=== PATIENT | male | born 1995 | race African-American/Black ===

== ENCOUNTER 2017-10-23 15:57 | Emergency (ER) | payer SELFPAY ==
[~2017-10-23] VITALS: Ht 180.3 cm; Wt 68.0 kg
[2017-10-23 17:29] LABS: HEMATOCRIT. 42.9 % (42.0-52.0); HEMOGLOBIN. 14.7 g/dL (14.0-18.0); MEAN CORPUSCULAR HEMOGLOBIN 28.5 pg (28.0-32.0); MEAN CORPUSCULAR VOLUME 83.2 fL (80.0-94.0); MEAN PLATELET VOLUME 8.3 fl (7.4-10.4); PLATELET 243 x1000/uL (130-400); RED BLOOD CELL COUNT 5.15 mill/uL (4.7-6.1); RED CELL DISTRIBUTION WIDTH 13.6 % (11.6-14.6)
[2017-10-23] MEDS ORDERED: ACETAMINOPHEN 325MG TABLET PO ONE (17:30)
[2017-10-23 17:33] LABS: CARBON DIOXIDE 28 mEq/L (21-32); CHLORIDE 98 mEq/L (98-107)
[2017-10-23 18:13] LABS: PLATELET ESTIMATE NORMAL
[2017-10-23 18:38] VITALS: BP 136/76
[2017-10-23 18:44] LABS: CLARITY URINE CLEAR (CLEAR); COLOR URINE YELLOW (YELLOW); KETONES URINE 3+ (NEGATIVE); LEUKOCYTE ESTERASE URINE NEGATIVE (NEGATIVE); NITRITE URINE NEGATIVE (NEGATIVE); OCCULT BLOOD URINE NEGATIVE (NEGATIVE); PH URINE >=9.0 (4.5-8.0); PROTEIN URINE 1+ (NEGATIVE); SPECIFIC GRAVITY URINE 1.029 (1.005-1.030)
== END 2017-10-23 19:29 | disposition home or self-care (01) ==
LOC: ER 15:57
DX: N50.811 Right testicular pain (principal); N50.812 Left testicular pain
CPT/HCPCS: 36415; 76870; 80048; 81001; 85025; 93976; 99285; Z7610

== ENCOUNTER 2019-08-19 23:24 | Emergency (ER) | payer SELFPAY ==
[~2019-08-19] VITALS: Ht 167.6 cm; Wt 80.0 kg
[2019-08-20] MEDS ORDERED: IBUPROFEN 600MG TABLET PO ONE (02:00)
[2019-08-20 02:03] VITALS: BP 139/79
== END 2019-08-20 02:05 | disposition home or self-care (01) ==
LOC: ER 23:24
DX: M79.18 Myalgia, other site (principal); F41.9 Anxiety disorder, unspecified; F20.9 Schizophrenia, unspecified
CPT/HCPCS: 99283

== ENCOUNTER 2019-08-24 04:25 | Emergency (ER) | payer SELFPAY ==
[~2019-08-24] VITALS: Ht 180.3 cm; Wt 75.0 kg
[2019-08-24 05:18] LABS: BASOPHILS % 0.6 % (0.0-2.0); EOSINOPHILS % 1.6 % (0.0-5.0); HEMATOCRIT. 40.7 % (42.0-52.0); HEMOGLOBIN. 13.8 g/dL (14.0-18.0); MEAN CORPUSCULAR HEMOGLOBIN 29.3 pg (28.0-32.0); MEAN CORPUSCULAR VOLUME 86.2 fL (80.0-94.0); MEAN PLATELET VOLUME 8.5 fl (7.4-10.4); MONOCYTES % 9.7 % (2.0-8.0); NEUTROPHILS % 62.1 % (40.0-76.0); PLATELET 274 x1000/uL (130-400); RED BLOOD CELL COUNT 4.72 mill/uL (4.7-6.1); RED CELL DISTRIBUTION WIDTH 13.8 % (11.6-14.6)
[2019-08-24 05:31] LABS: CHLORIDE 106 mEq/L (98-107)
[2019-08-24] MEDS ORDERED: ASPIRIN 81MG TABLET PO ONE (06:30)
[2019-08-24] MEDS ORDERED: ACETAMINOPHEN 500MG TABLET PO ONE (06:30)
[2019-08-24 06:51] VITALS: BP 120/79
[2019-08-24] MEDS ORDERED: MAGNESIUM/ALUMINUM HYDROXIDE/SIMETHICONE 30ML UDC PO STA (07:08)
[2019-08-24] MEDS ORDERED: FAMOTIDINE 20MG/2ML VIAL IV STA (07:08)
[2019-08-24] MEDS ORDERED: KETOROLAC 60MG/2ML VIAL IM ONE (07:15)
== END 2019-08-24 07:35 | disposition home or self-care (01) ==
LOC: ER 04:25
DX: R07.89 Other chest pain (principal); J45.909 Unspecified asthma, uncomplicated; F12.10 Cannabis abuse, uncomplicated; F17.200 Nicotine dependence, unspecified, uncomplicated
CPT/HCPCS: 36415; 71045; 80053; 84484; 85025; 93005; 96374; 99284; J3490; Z7610

== ENCOUNTER 2021-10-27 08:10 | Emergency (ER) | payer MEDICAID ==
[~2021-10-27] VITALS: Ht 180.3 cm; Wt 73.0 kg
[~2021-10-27 08:10] MED LIST: AMOX-424 MT; BO1 TP; IBUP-2029 MT
[2021-10-27] MEDS ORDERED: IBUP-2028 MT (08:53)
[2021-10-27] MEDS ORDERED: AMOX-424 MT (08:53)
[2021-10-27] MEDS ORDERED: AMOXICILLIN/POTASSIUM CLAVULANATE 875/125MG TAB PO ONE (09:00)
[2021-10-27 09:13] VITALS: BP 117/84
== END 2021-10-27 09:14 | disposition home or self-care (01) ==
LOC: ER 08:10
DX: Z48.02 Encounter for removal of sutures (principal); L03.113 Cellulitis of right upper limb
CPT/HCPCS: 99283; Z7610

== ENCOUNTER 2023-02-25 10:56 | Emergency (ER) | payer MEDICAID, OTHER ==
[~2023-02-25] VITALS: Ht 182.9 cm; Wt 73.0 kg
[~2023-02-25 10:56] MED LIST changes: +IBUP-2028 MT
[2023-02-25 10:58] VITALS: BP 117/85
[2023-02-25] MEDS ORDERED: IBUP-2028 MT (12:40)
== END 2023-02-25 13:14 | disposition home or self-care (01) ==
LOC: ER 10:56
DX: M79.671 Pain in right foot (principal); V49.9XXA Car occupant (driver) (passenger) injured in unspecified traffic accident, initial encounter; Y93.9 Activity, unspecified; Y92.89 Other specified places as the place of occurrence of the external cause; Y99.8 Other external cause status
CPT/HCPCS: 73630; 99283

== ENCOUNTER 2023-03-02 07:29 | Emergency (ER) | payer OTHER ==
[~2023-03-02] VITALS: Ht 172.7 cm; Wt 73.0 kg
[2023-03-02 07:38] VITALS: BP 128/76
== END 2023-03-02 09:55 | disposition home or self-care (01) ==
LOC: ER 08:05
DX: T75.4XXA Electrocution, initial encounter (principal); X58.XXXA Exposure to other specified factors, initial encounter; F12.10 Cannabis abuse, uncomplicated; Z79.899 Other long term (current) drug therapy
CPT/HCPCS: 93005; 99283

== ENCOUNTER 2023-03-13 07:46 | Emergency (ER) | payer OTHER ==
[~2023-03-13] VITALS: Ht 180.3 cm; Wt 75.0 kg
[2023-03-13] MEDS ORDERED: METO-293 PO (08:12)
[2023-03-13] MEDS ORDERED: IBUP-2028 PO (08:12)
[2023-03-13] MEDS ORDERED: IBUPROFEN 400MG TABLET PO ONE (08:15)
[2023-03-13] MEDS ORDERED: METOCLOPRAMIDE HCL 10MG TABLET PO ONE (08:15)
[2023-03-13 09:16] VITALS: BP 128/77
== END 2023-03-13 09:09 | disposition home or self-care (01) ==
LOC: ER 07:46
DX: R51.9 Headache, unspecified (principal); F12.10 Cannabis abuse, uncomplicated
CPT/HCPCS: 99283; J8597

== ENCOUNTER 2023-04-07 11:52 | Emergency (ER) | payer OTHER ==
[~2023-04-07] VITALS: Ht 182.9 cm; Wt 77.0 kg
[~2023-04-07 11:52] MED LIST changes: +IBUP-2028 PO; +METO-293 PO
[2023-04-07 12:02] VITALS: BP 136/84
== END 2023-04-07 20:08 | disposition home or self-care (01) ==
LOC: ER 12:13
DX: S02.2XXA Fracture of nasal bones, initial encounter for closed fracture (principal); S01.551A Open bite of lip, initial encounter; H11.33 Conjunctival hemorrhage, bilateral; F12.90 Cannabis use, unspecified, uncomplicated; Y04.2XXA Assault by strike against or bumped into by another person, initial encounter; Y93.39 Activity, other involving climbing, rappelling and jumping off; Y92.89 Other specified places as the place of occurrence of the external cause; Y99.8 Other external cause status
CPT/HCPCS: 70450; 70486; 72125; 99284; Z7610

== ENCOUNTER 2025-02-26 14:58 | Emergency (ER) | payer OTHER ==
[~2025-02-26] VITALS: Ht 182.9 cm; Wt 100.0 kg
[2025-02-26 15:03] VITALS: O2SAT 100
[2025-02-26] MEDS ORDERED: METOCLOPRAMIDE HCL 10MG/2ML VIAL IV ONE (15:30)
[2025-02-26] MEDS ORDERED: KETOROLAC 15MG/ML VIAL IV ONE (15:30)
[2025-02-26] MEDS: KETOROLAC 30MG/ML VIAL IM ONE (16:17)
[2025-02-26] MEDS: METOCLOPRAMIDE HCL 10MG/2ML VIAL IM ONE (16:29)
[2025-02-26] MEDS ORDERED: IBUP-2028 MT (16:40)
[2025-02-26 17:18] VITALS: BP 144/92; PULSE 91; RESP 19; TEMP 36.8; O2SAT 99
== END 2025-02-26 17:21 | disposition home or self-care (01) ==
LOC: ER 14:58
DX: M54.6 Pain in thoracic spine (principal); G43.909 Migraine, unspecified, not intractable, without status migrainosus; R03.0 Elevated blood-pressure reading, without diagnosis of hypertension; F12.90 Cannabis use, unspecified, uncomplicated; Z79.899 Other long term (current) drug therapy; Z79.1 Long term (current) use of non-steroidal anti-inflammatories (NSAID)
CPT/HCPCS: 71046; 96372; 99284; J1885 ×2; J2765; Z7610 ×2; A4606